=== PATIENT | female | born 1950 ===

== ENCOUNTER 2023-06-07 | Observation (INO) | payer MEDICARE ==
[2023-06-07] MEDS ORDERED: Metoprolol Succinate 25 MG Tab.ER PO ONE (00:17)
[2023-06-07] MEDS ORDERED: LORazepam 1 MG Tab PO ONE (00:18)
[2023-06-07 00:32] LABS: BASOPHILS ABSOLUTE AUTO 0.05 K/uL (0.02-0.10); BASOPHILS PERCENT AUTO 0.5 % (0.0-0.5); EOSINOPHILS ABSOLUTE AUTO 0.13 K/uL (0.04-0.40); EOSINOPHILS PERCENT AUTO 1.4 % (1.0-5.0); HEMATOCRIT 39.2 % (37.0-47.0); HEMOGLOBIN 13.3 g/dL (11.5-16.5); LYMPHOCYTES ABSOLUTE AUTO 4.99 K/uL (1.50-4.00); LYMPHOCYTES PERCENT AUTO 52.4 % (20.0-40.0); MEAN CORPUSCULAR HEMOGLOBIN 28.9 pg (27.0-32.0); MEAN CORPUSCULAR HGB CONC 33.9 g/dL (31.0-35.0); MEAN CORPUSCULAR VOLUME 85 fL (76-96); MEAN PLATELET VOLUME 9.4 fL (6.0-10.0); MONOCYTES ABSOLUTE AUTO 0.77 K/uL (0.20-0.80); MONOCYTES PERCENT AUTO 8.1 % (3.0-10.0); NEUTROPHILS ABSOLUTE AUTO 3.59 K/uL (2.00-7.50); NEUTROPHILS PERCENT AUTO 37.6 % (45.0-70.0); PLATELET COUNT,PLT 297 K/uL (150-500); RED CELL DISTRIBUTION WIDTH 13.6 % (11.0-16.0); WHITE BLOOD CELL COUNT,WBC 9.5 K/uL (4.0-11.0)
[2023-06-07] MEDS ORDERED: Sodium Chloride 0.9% 10 ML Syringe FLUSH PRN (00:47)
[2023-06-07 00:49] LABS: A/G RATIO 1.1 (0.8-2.0); ALBUMIN 4.1 g/dL (3.4-5.0); ANION GAP 13.3 mmol/L (5.0-15.0); BILIRUBIN TOTAL 0.4 mg/dL (0.0-1.0); CARBON DIOXIDE,CO2 28.3 mmol/L (21.0-32.0); CREATININE 0.95 mg/dL (0.55-1.02); EST CRCL DRUG DOSING (CG) 45.58 mL/min; POTASSIUM,K 3.6 mmol/L (3.5-5.1); PROTEIN TOTAL,TP 7.7 g/dL (6.4-8.2)
[2023-06-07] MEDS ORDERED: Labetalol 100 MG/20 ML MDV ONE (01:15)
[2023-06-07] MEDS ORDERED: Labetalol 100 MG/20 ML MDV IVPUSH ONE (01:16)
[2023-06-07] MEDS: Metoprolol Succinate 25 MG Tab.ER PO SCH ×2 (01:55→08:15)
[2023-06-07] MEDS ORDERED: LORazepam 1 MG Tab PO PRN (03:38)
[2023-06-07 07:11] LABS: APPEARANCE,URINE CLEAR (CLEAR); BILIRUBIN,URINE NEGATIVE (NEGATIVE); COLOR,URINE YELLOW; GLUCOSE,URINE NEGATIVE (NEGATIVE); KETONES,URINE TRACE mg/dL (NEGATIVE); LEUKOCYTE ESTERASE,URINE NEGATIVE (NEGATIVE); NITRITE,URINE NEGATIVE (NEGATIVE); OCCULT BLOOD,URINE NEGATIVE (NEGATIVE); PROTEIN,URINE NEGATIVE (NEGATIVE); UROBILINOGEN,URINE 0.2 E.U./dL (0.2-1.0)
[2023-06-07 07:16] LABS: RBC,URINE NOT SEEN /HPF; WBC,URINE NOT SEEN /HPF
[2023-06-07] MEDS ORDERED: Hydrochlorothiazide 12.5 MG Cap PO SCH (08:00)
[2023-06-07] MEDS ORDERED: amLODIPine 5 MG Tab PO SCH (08:00)
[2023-06-07 08:04] LABS: BASOPHILS ABSOLUTE AUTO 0.05 K/uL (0.02-0.10); BASOPHILS PERCENT AUTO 0.6 % (0.0-0.5); EOSINOPHILS ABSOLUTE AUTO 0.04 K/uL (0.04-0.40); EOSINOPHILS PERCENT AUTO 0.5 % (1.0-5.0); HEMATOCRIT 36.6 % (37.0-47.0); HEMOGLOBIN 12.6 g/dL (11.5-16.5); LYMPHOCYTES ABSOLUTE AUTO 3.29 K/uL (1.50-4.00); LYMPHOCYTES PERCENT AUTO 41.3 % (20.0-40.0); MEAN CORPUSCULAR HEMOGLOBIN 29.4 pg (27.0-32.0); MEAN CORPUSCULAR HGB CONC 34.4 g/dL (31.0-35.0); MEAN CORPUSCULAR VOLUME 85 fL (76-96); MEAN PLATELET VOLUME 9.4 fL (6.0-10.0); MONOCYTES PERCENT AUTO 8.8 % (3.0-10.0); NEUTROPHILS ABSOLUTE AUTO 3.88 K/uL (2.00-7.50); NEUTROPHILS PERCENT AUTO 48.8 % (45.0-70.0); PLATELET COUNT,PLT 299 K/uL (150-500); RED BLOOD CELL COUNT 4.29 M/uL (3.80-5.80); RED CELL DISTRIBUTION WIDTH 13.4 % (11.0-16.0)
[2023-06-07 08:22] LABS: ANION GAP 13.2 mmol/L (5.0-15.0); BUN/CREATININE RATIO 17.4 (6-25); CALCIUM 9.8 mg/dL (8.5-10.1); CARBON DIOXIDE,CO2 25.8 mmol/L (21.0-32.0); CREATININE 0.86 mg/dL (0.55-1.02); EST CRCL DRUG DOSING (CG) 50.35 mL/min
[2023-06-07] MEDS ORDERED: LORazepam 0.5 MG Tab PO PRN (09:22)
[2023-06-07] MEDS ORDERED: Simvastatin 20 MG Tab PO SCH (20:00)
[2023-06-08] MEDS ORDERED: Non-Formulary Medication 1 Each (Aspirin [Halfprin] 81 MG Tab.Ec) PO SCH (08:00)
== END 2023-06-07 09:42 | disposition home or self-care (01) ==
LOC: LB.ED → LB.MS 01:49 → UNDOADMOB 02:00
PROVIDERS: ADMIT Physician Assistant; ATTEND Physician Assistant
DX: I67.4 Hypertensive encephalopathy (principal); I10 Essential (primary) hypertension; Z79.899 Other long term (current) drug therapy; Z88.2 Allergy status to sulfonamides
CPT/HCPCS: 36415; 70450; 80048; 80053; 81001; 84484; 85025; 93005; 93010; 96374; 99285-25; A9270-GY; G0378; J3490